=== PATIENT | male | born 1980 | race American Indian/Alaskan Native ===

== ENCOUNTER 2021-02-07 09:50 | Emergency (ER) | payer OTHER ==
[2021-02-07] MEDS ORDERED: ASPIRIN 325 MG TAB PO ONE (10:21)
--- NOTE | 2021-02-07 10:53 | XRay Report ---
CHEST 2 VIEWS INDICATION: chest pain. COMPARISON: FINDINGS: Support devices: None. Heart: Within normal limits. Lungs: No acute air space or interstitial disease. Pleura: No significant pleural effusion. No pneumothorax. Additional findings: None. IMPRESSION: 1. No acute findings. Signer Name: Yovanny Aleman MD Signed: 02/07/2021 10:48 AM Workstation Name: [id number]
[2021-02-07 11:02] LABS: Basophils % (Auto) 0.7 % (0.0-1.8); Eosinophils % (Auto) 0.7 % (0.0-4.3); Hematocrit 46.1 % (35.5-45.6); Hemoglobin 15.4 gm/dl (11.8-15.2); Lymphocytes # (Auto) 1.5 K/mm3 (1.2-5.4); Lymphocytes % (Auto) 42.6 % (13.4-35.0); Mean Corpuscular HGB Conc 33 % (32-34); Mean Corpuscular Volume 91 fl (84-94); Monocytes # (Auto) 0.3 K/mm3 (0.0-0.8); Monocytes % (Auto) 9.9 % (0.0-7.3); Red Blood Count 5.06 M/mm3 (3.65-5.03); Red Cell Distribution Width 14.5 % (13.2-15.2)
[2021-02-07 11:24] LABS: Platelet Count 234 K/mm3 (140-440)
[2021-02-07 11:34] LABS: Alanine Aminotransferase 20 units/L (7-56); Albumin 4.9 g/dL (3.9-5); BUN/Creatinine Ratio 10; Blood Urea Nitrogen 9 mg/dL (9-20); Calcium 9.7 mg/dL (8.4-10.2); Hemolysis Index 32
--- NOTE | 2021-02-07 11:49 | Event Note ---
ED Screening Note Date of service: 02/07/21 Time: 11:47 ED Screening Note: 40-year-old male patient with history of tobacco abuse in remission presents to the emergency department with complaints of left-sided chest pressure starting this morning, approximately 2 hours ago. Patient states he was preparing pizza in the kitchen when his symptoms began. No medications prior to arrival. Patient experienced a similar episode approximately 2 weeks ago, but did not seek medical attention at that time. Currently, patient describes a sensation as "trapped gas." General: Awake, appropriately interactive, no acute distress. Neck: Supple. Full range of motion intact. Cardiovascular: Normal peripheral perfusion. Pulmonary: No respiratory distress. Patient is speaking normally without use of accessory muscles. Skin: No apparent rashes or lesions. Neurological: No facial asymmetry. Speech is clear. Follows commands. Patient is alert and oriented. Musculoskeletal: Moves all four extremities spontaneously with normal range of motion. Psych: Cooperative. Appropriate mood and affect. I have greeted and performed a focused rapid initial assessment of this patient. A comprehensive ED assessment and evaluation of the patient, analysis of all test results, and completion of the medical decision-making process will be conducted by additional ED providers. This initial assessment/diagnostic orders/clinical plan/treatment(s) is/are subject to change based on patients health status, clinical progression and re-assessment. Further treatment and workup at subsequent clinical provider's discretion. Patient/guardian urged not to elope from the ED as their condition may be serious if not clinically assessed and managed.
--- NOTE | 2021-02-07 12:28 | Emergency Department Report ---
ED Chest Pain HPI - General Chief Complaint: Chest Pain Stated Complaint: CHEST PAIN Time Seen by Provider: 02/07/21 11:48 Source: patient Mode of arrival: Ambulatory Limitations: No Limitations - History of Present Illness Initial Comments: 40-year-old male presents to ED with chest pain since 9 AM. Patient reports pain is intermittent, pressure-like, left-sided, nonradiating. Onset at rest. He denies any associated shortness of breath, diaphoresis, nausea or vomiting, leg pain or swelling, cough or fever. Patient denies tobacco use. MD Complaint: chest pain -: This morning Onset: during rest Pain Location: left chest Pain Radiation: none Severity: mild Quality: pressure, other ("like gas") Consistency: intermittent Improves With: nothing Worsens With: nothing re: denies: nausea, vomting, diaphoresis, dyspnea Other Symptoms: denies: cough, fever, leg swelling - Related Data Allergies Allergy/AdvReac Type Severity Reaction Status Date / Time No Known Allergies Allergy Verified 02/07/21 13:02 Heart Score - HEART Score History: Slightly suspicious EKG: Normal Age: < 45 Risk factors: 1-2 risk factors Troponin: < normal limit HEART Score: 1 - EKG Read Time Time EKG Completed: 10:10 EKG Read Time: 10:23 ED Review of Systems ROS: Stated complaint: CHEST PAIN Other details as noted in HPI Comment: All other systems reviewed and negative Constitutional: denies: chills, fever Respiratory: denies: cough, shortness of breath Cardiovascular: chest pain Gastrointestinal: denies: nausea, vomiting Musculoskeletal: other (Denies leg pain or swelling) ED Past Medical Hx - Past Medical History Previous Medical History?: No - Surgical History Past Surgical History?: No - Social History Smoking Status: Never Smoker Substance Use Type: Alcohol ED Physical Exam - General Limitations: No Limitations General appearance: alert, in no apparent distress - Head Head exam: Present: atraumatic, normocephalic - Eye Eye exam: Present: normal appearance, EOMI - ENT ENT exam: Present: mucous membranes moist - Neck Neck exam: Present: normal inspection - Respiratory Respiratory exam: Present: normal lung sounds bilaterally. Absent: respiratory distress - Cardiovascular Cardiovascular Exam: Present: regular rate, normal rhythm - GI/Abdominal GI/Abdominal exam: Present: soft. Absent: distended, tenderness - Extremities Exam Extremities exam: Present: normal inspection - Neurological Exam Neurological exam: Present: alert, oriented X3 - Psychiatric Psychiatric exam: Present: normal affect, normal mood - Skin Skin exam: Present: warm, dry, intact, normal color ED Course Vital Signs 02/07/21 02/07/21 02/07/21 10:15 12:55 13:01 Temperature 98.4 F Pulse Rate 64 59 L 65 Respiratory 20 11 L 17 Rate Blood Pressure 145/99 125/79 O2 Sat by Pulse 99 98 Oximetry 02/07/21 02/07/21 02/07/21 13:15 13:21 13:31 Temperature Pulse Rate 55 L 88 61 Respiratory 19 15 Rate Blood Pressure 125/79 128/84 O2 Sat by Pulse 98 98 Oximetry 02/07/21 02/07/21 02/07/21 13:45 14:01 14:15 Temperature Pulse Rate 69 60 56 L Respiratory 18 18 19 Rate Blood Pressure 128/84 125/75 125/75 O2 Sat by Pulse 99 97 98 Oximetry 02/07/21 02/07/21 02/07/21 14:31 14:45 15:01 Temperature Pulse Rate 65 69 68 Respiratory 20 19 18 Rate Blood Pressure 126/74 126/74 120/79 O2 Sat by Pulse 97 97 95 Oximetry 02/07/21 02/07/21 02/07/21 15:15 15:31 15:45 Temperature Pulse Rate 55 L 77 69 Respiratory 17 18 23 Rate Blood Pressure 120/79 121/82 121/82 O2 Sat by Pulse 95 97 97 Oximetry 02/07/21 16:01 Temperature Pulse Rate 76 Respiratory 19 Rate Blood Pressure 115/71 O2 Sat by Pulse 96 Oximetry ED Medical Decision Making - Lab Data Result diagrams: 02/07/21 10:24 02/07/21 10:24 - EKG Data -: EKG Interpreted by Ny EKG shows normal: sinus rhythm, axis, intervals, QRS complexes, ST-T waves Rate: normal - EKG Data Interpretation: no acute changes - Radiology Data Radiology results: report reviewed, image reviewed - Medical Decision Making 40-year-old male presents to ED with chest pain. EKG is unremarkable. Troponin is negative x2. Chest x-ray is unremarkable. Vital signs are stable. Patient is feeling much better at this time. He will be discharged home. Patient information will be faxed to [facility] for urgent cardiology follow-up. - Differential Diagnosis ACS, GERD, pancreatitis Critical care attestation.: If time is entered above; I have spent that time in minutes in the direct care of this critically ill patient, excluding procedure time. ED Disposition Clinical Impression: Chest pain Disposition: TO HOME OR SELFCARE Is pt being admited?: No Condition: Stable Instructions: Nonspecific Chest Pain, Adult Referrals: UNKNOWN, [Other] - 3-5 Days PRIMARY CARE, [Referring] - 3-5 Days KATELYNN AZUL MD [Staff Physician] - 3-5 Days Time of Disposition: 15:09
[2021-02-07] MEDS ORDERED: ASPIRIN 325 MG TAB ONE (12:48)
[2021-02-07 17:26] VITALS: BP 115/71
--- NOTE | 2021-02-11 09:40 | Electrocardiograph Report ---
[facility] Test Date: 2021-02-07 Test Time: 10:10:46 Pat Name: ANDREW SANCHEZ Department: Room: Gender: M Emt I/99: Александр TEJADA RN : 1980 Requested By: KHURRAM BRIONES Order Number: [id number] Reading MD: Shahid Cedillo Measurements Intervals [place] Rate: 88 P: 55 NM: 194 QRS: 61 QRSD: 90 T: 22 QT: 345 QTc: 418 Interpretive Statements Sinus rhythm Probable left atrial enlargement ST elev, probable normal early repol pattern No previous ECG available for comparison Electronically Signed On 02-11-2021 9:40:30 EDT by Shahid Cedillo
== END 2021-02-07 16:00 | disposition home or self-care (01) ==
LOC: ED 09:50
DX: R07.89 Other chest pain (principal); Z72.89 Other problems related to lifestyle
CPT/HCPCS: 36415; 71046; 80053; 83690; 84484; 85025; 93005; 99284

== ENCOUNTER 2021-02-13 22:53 | Emergency (ER) | payer OTHER ==
[2021-02-13] MEDS ORDERED: ASPIRIN 325 MG TAB PO ONE (23:47)
[2021-02-13] MEDS ORDERED: ALUM-MAG HYDROXIDE-SIMETHICONE 200-200-20MG/5ML ORAL LIQD 30 ML PO ONE (23:47)
[2021-02-13] MEDS ORDERED: LIDOCAINE VISCOUS 2% 15 ML ORAL LIQD PO ONE (23:47)
--- NOTE | 2021-02-13 23:50 | Event Note ---
ED Screening Note Date of service: 02/13/21 Time: 23:49 ED Screening Note: Patient is a 40-year-old -[place] male with past medical history of GERD who presents to the ED acute onset persistent intermittent left-sided chest pain for the last 1 week, worse in the last 12 hours. Patient states that he initially felt that he was unable to burp because of pressure in his chest. Patient states that he has been taking Gas-X medication with no relief. Patient denies dizziness, syncope, shortness of breath, nausea, vomiting, neck pain, headache, numbness and tingling or weakness of upper extremities bilaterally, cough, palpitations or abdominal pain. This initial assessment/diagnostic orders/clinical plan/treatment(s) is/are subject to change based on patients health status, clinical progression and re- assessment by fellow clinical providers in the ED. Further treatment and workup at subsequent clinical providers discretion. Patient/guardian urged not to elope from the ED as their condition may be serious if not clinically assessed and managed. Initial orders include: CBC, CMP, troponin, EKG, chest x-ray
--- NOTE | 2021-02-14 00:16 | XRay Report ---
CHEST 1 VIEW INDICATION / CLINICAL INFORMATION: chest pain. FINDINGS: SUPPORT DEVICES: None. HEART / MEDIASTINUM: No significant abnormality. LUNGS / PLEURA: No significant pulmonary or pleural abnormality. No pneumothorax. ADDITIONAL FINDINGS: No significant additional findings. IMPRESSION: 1. No acute findings. Signer Name: Carmelo Coronado MD Signed: 02/14/2021 12:12 AM Workstation Name: [id number]
[2021-02-14 00:19] LABS: Basophils % (Auto) 0.5 % (0.0-1.8); Eosinophils % (Auto) 0.5 % (0.0-4.3); Hematocrit 44.4 % (35.5-45.6); Hemoglobin 15.1 gm/dl (11.8-15.2); Lymphocytes # (Auto) 1.6 K/mm3 (1.2-5.4); Lymphocytes % (Auto) 38.1 % (13.4-35.0); Mean Corpuscular HGB Conc 34 % (32-34); Mean Corpuscular Volume 90 fl (84-94); Monocytes # (Auto) 0.5 K/mm3 (0.0-0.8); Monocytes % (Auto) 12.1 % (0.0-7.3); Platelet Count 199 K/mm3 (140-440); Red Blood Count 4.94 M/mm3 (3.65-5.03); Red Cell Distribution Width 14.3 % (13.2-15.2)
[2021-02-14 00:45] LABS: Alanine Aminotransferase 32 units/L (7-56); Albumin 4.7 g/dL (3.9-5); BUN/Creatinine Ratio 12; Blood Urea Nitrogen 12 mg/dL (9-20); Calcium 9.3 mg/dL (8.4-10.2); Hemolysis Index 13
--- NOTE | 2021-02-14 02:24 | Emergency Department Report ---
ED Chest Pain HPI - General Chief Complaint: Chest Pain Stated Complaint: LT SIDE CHEST DISCOMFORT Source: patient Mode of arrival: Ambulatory Limitations: No Limitations - History of Present Illness Initial Comments: Patient is a 40-year-old -[place] male with past medical history of GERD and who does not take any medications presents to the ED acute onset persistent intermittent left-sided chest pain for the last 1 week, worse in the last 12 hours. Patient states that he initially felt that he was unable to burp because of pressure in his chest. Patient states that he has been taking Gas-X medication with no relief. Patient denies dizziness, syncope, shortness of breath, nausea, vomiting, neck pain, headache, numbness and tingling or weakness of upper extremities bilaterally, cough, palpitations or abdominal pain. MD Complaint: chest pain -: Sudden, week(s) (2) Onset: awoke with symptoms Pain Location: substernal, left chest Pain Radiation: none Severity: mild Severity scale (0 -10): 4 Quality: aching Consistency: intermittent Improves With: nothing Worsens With: nothing re: nausea. denies: vomting, diaphoresis, dyspnea, sense of impending doom Other Symptoms: acid taste in mouth. denies: cough, fever, syncope, rash, leg swelling, palpitations, burping, other Treatments Prior to Arrival: none Aspirin use within the Past 7 Days: (0) No - Related Data On Oral Contraceptives: No Previous Rx's Medication Instructions Recorded Last Taken Type Famotidine [Pepcid] 20 mg PO BID #60 tablet 02/14/21 Unknown Rx Naproxen 500 mg PO Q12H PRN #20 tablet 02/14/21 Unknown Rx Ondansetron [Zofran Odt] 4 mg PO Q8HR PRN #15 tab.rapdis 02/14/21 Unknown Rx hydrOXYzine PAMOATE [Vistaril] 50 mg PO QHS PRN #30 capsule 02/14/21 Unknown Rx Allergies Allergy/AdvReac Type Severity Reaction Status Date / Time No Known Allergies Allergy Verified 02/07/21 13:02 Heart Score - HEART Score History: Slightly suspicious EKG: Normal Age: < 45 Risk factors: No known risk factors Troponin: < normal limit HEART Score: 0 - EKG Read Time Time EKG Completed: 23:10 EKG Read Time: 23:15 - Critical Actions Critical Actions: 0-3 pts:0.9-1.7%risk of adverse cardiac event.Candidate for ailin steinberg ED Review of Systems ROS: Stated complaint: LT SIDE CHEST DISCOMFORT Other details as noted in HPI Constitutional: denies: chills, fever Eyes: denies: eye pain, eye discharge, vision change ENT: denies: ear pain, throat pain Respiratory: denies: cough, shortness of breath, wheezing Cardiovascular: chest pain (Left-sided chest discomfort). denies: palpitations Endocrine: no symptoms reported Gastrointestinal: abdominal pain (Epigastric discomfort). denies: nausea, vomiting, diarrhea Genitourinary: denies: urgency, dysuria Musculoskeletal: denies: back pain, joint swelling, arthralgia Skin: denies: rash, lesions Neurological: denies: headache, weakness, paresthesias Psychiatric: anxiety. denies: depression Hematological/Lymphatic: denies: easy bleeding, easy bruising ED Past Medical Hx - Past Medical History Previous Medical History?: No - Surgical History Past Surgical History?: No - Social History Smoking Status: Current Every Day Smoker Substance Use Type: None - Medications Home Medications: Home Medications Medication Instructions Recorded Confirmed Last Taken Type Famotidine [Pepcid] 20 mg PO BID #60 tablet 02/14/21 Unknown Rx Naproxen 500 mg PO Q12H PRN #20 tablet 02/14/21 Unknown Rx Ondansetron [Zofran Odt] 4 mg PO Q8HR PRN #15 tab.rapdis 02/14/21 Unknown Rx hydrOXYzine PAMOATE [Vistaril] 50 mg PO QHS PRN #30 capsule 02/14/21 Unknown Rx ED Physical Exam - General Limitations: No Limitations General appearance: alert, in no apparent distress - Head Head exam: Present: atraumatic, normocephalic, normal inspection - Eye Eye exam: Present: normal appearance, PERRL, EOMI Pupils: Present: normal accommodation - ENT ENT exam: Present: normal exam, normal orophraynx, mucous membranes moist, TM's normal bilaterally, normal external ear exam - Neck Neck exam: Present: normal inspection, full ROM. Absent: tenderness, lymphadenopathy - Respiratory Respiratory exam: Present: normal lung sounds bilaterally. Absent: respiratory distress, wheezes, rales, rhonchi, chest wall tenderness, accessory muscle use, decreased breath sounds, prolonged expiratory - Cardiovascular Cardiovascular Exam: Present: regular rate, normal rhythm, normal heart sounds. Absent: systolic murmur, diastolic murmur, rubs, gallop - GI/Abdominal GI/Abdominal exam: Present: soft, normal bowel sounds. Absent: distended, tenderness, guarding, hyperactive bowel sounds, hypoactive bowel sounds, org anomegaly - Extremities Exam Extremities exam: Present: normal inspection, full ROM, normal capillary refill - Back Exam Back exam: Present: normal inspection, full ROM. Absent: tenderness, CVA tenderness (R), CVA tenderness (L), muscle spasm, paraspinal tenderness, vertebral tenderness - Neurological Exam Neurological exam: Present: alert, oriented X3, CN II-XII intact, normal gait, reflexes normal - Psychiatric Psychiatric exam: Present: normal affect, normal mood - Skin Skin exam: Present: warm, dry, intact, normal color. Absent: rash ED Course Vital Signs 02/13/21 22:59 Temperature 98.8 F Pulse Rate 73 Respiratory 18 Rate Blood Pressure 146/90 O2 Sat by Pulse 98 Oximetry LEXX score - Lexx Score Age > 65: (0) No Aspirin use within the Past 7 Days: (0) No 3 or more CAD Risk Factors: (0) No 2 or more Angina events in past 24 hrs: (0) No Known CAD with more than 50% Stenosis: (0) No Elevated Cardiac Markers: (0) No ST Deviation Greater than 0.5mm: (0) No LEXX Score: 0 ED Medical Decision Making - Lab Data Result diagrams: 02/14/21 00:06 02/14/21 00:06 - EKG Data EKG shows normal: sinus rhythm Rate: normal - EKG Data Interpretation: normal EKG - Radiology Data Radiology results: report reviewed, image reviewed [facility] [address] [place] [address] XRay Report Signed Patient: ANDREW SANCHEZ MR#: [id number] 39 : 1980 Acct:[id number] Age/Sex: 40 / M ADM Date: 02/13/21 Loc: ED Attending Dr: Ordering Physician: MATT CHANDLER Date of Service: 02/13/21 Procedure(s): XR chest 1V ap Accession Number(s): [id number] cc: TIFFANY OSEDO, PA Fluoro Time In Minutes: CHEST 1 VIEW INDICATION / CLINICAL INFORMATION: chest pain. FINDINGS: SUPPORT DEVICES: None. HEART / MEDIASTINUM: No significant abnormality. LUNGS / PLEURA: No significant pulmonary or pleural abnormality. No pneumothorax. ADDITIONAL FINDINGS: No significant additional findings. IMPRESSION: 1. No acute findings. Signer Name: Carmelo Coronado MD Signed: 02/14/2021 12:12 AM Workstation Name: [id number] Transcribed By: BC Dictated By: Carmelo Coronado MD Electronically Authenticated By: Carmelo Coronado MD Signed Date/Time: 02/14/2111 DD/ TD/TT: - Medical Decision Making This is a 40-year-old -[place] male with past medical history of GERD and who does not take any medications presents to the ED acute onset persistent intermittent left-sided chest pain for the last 1 week, worse in the last 12 hours. Patient states that he initially felt that he was unable to burp because of pressure in his chest. Patient states that he has been taking Gas-X medication with no relief. In the ED, patient is alert oriented x3 and is not in any distress. EKG shows normal sinus rhythm with no ST or T wave abnormalities. Chest x-ray shows no acute cardiopulmonary abnormalities or pneumonitis. Lab test results were reviewed and are all nonactionable. Patient was treated in the ED for pain with aspirin and also given antacids. Patient has no cardiac risk factors and his heart score is 0. Patient is also PERC negative per Wells criteria. Patient's symptoms are likely due to GERD or chest wall muscle strain, or anxiety and unlikely due to ACS given the fact the patient heart score is 0 and he has no cardiac risk factors. Patient was therefore discharged home and advised to follow-up with his primary care physician in 5 to 7 days for reevaluation. Patient is advised return to the ED immediately if symptoms get worse. - Differential Diagnosis ACS; anxiety; pneumonia; muscle strain; GERD; Critical care attestation.: If time is entered above; I have spent that time in minutes in the direct care of this critically ill patient, excluding procedure time. ED Disposition Clinical Impression: Acute nonspecific chest pain with low risk of coronary artery disease, Anxiety as acute reaction to exceptional stress GERD (gastroesophageal reflux disease) Qualifiers: Esophagitis presence: esophagitis presence not specified Qualified Code(s): K21.9 - Gastro-esophageal reflux disease without esophagitis Disposition: TO HOME OR SELFCARE Is pt being admited?: No Does the pt Need Aspirin: No Condition: Stable Instructions: Generalized Anxiety Disorder, Adult, Heartburn, Hthn-[id number], Ch est Wall Pain, Fqbn-[id number]-Hwnc, Nonspecific Chest Pain, Adult, Zlaq-tm-Eody, Gastroesophageal Reflux Disease, Adult, Subn-br-Hocl, Chest Pain (ED) Additional Instructions: All lab test results were reviewed and are all nonactionable. Therefore take medication with food, drink plenty of fluids and follow-up with your primary care physician in 5 to 7 days for reevaluation. Return to the ED immediately if symptoms get worse. Prescriptions: hydrOXYzine PAMOATE [Vistaril] 50 mg PO QHS PRN #30 capsule PRN Reason: Anxiety Naproxen 500 mg PO Q12H PRN #20 tablet PRN Reason: Pain , Severe (7-10) Famotidine [Pepcid] 20 mg PO BID #60 tablet Ondansetron [Zofran Odt] 4 mg PO Q8HR PRN #15 tab.rapdis PRN Reason: Nausea Referrals: [facility] [Provider Group] - 3-5 Days Time of Disposition: 02:22 Print Language: KAZAKH
[2021-02-14 05:03] VITALS: BP 146/90
--- NOTE | 2021-02-14 13:20 | Electrocardiograph Report ---
[facility] Test Date: 2021-02-13 Test Time: 23:08:51 Pat Name: ANDREW SANCHEZ Department: Room: Gender: M Nursing Manager: HEIDI : 1980 Requested By: TIFFANY ESQUIVEL Order Number: [id number] Reading MD: Chepe Bolton Measurements Intervals [place] Rate: 81 P: 145 TN: 201 QRS: 141 QRSD: 91 T: 7 QT: 340 QTc: 396 Interpretive Statements Sinus or ectopic atrial rhythm Left atrial enlargement Right axis deviation Compared to ECG 02/07/2021 10:10:46 Ectopic atrial rhythm now present Right-axis deviation now present Sinus rhythm no longer present ST (T wave) deviation no longer present Electronically Signed On 02-14-2021 13:20:11 EDT by Chepe Bolton
== END 2021-02-14 02:45 | disposition home or self-care (01) ==
LOC: ED 22:53
DX: K21.9 Gastro-esophageal reflux disease without esophagitis (principal); F41.9 Anxiety disorder, unspecified; F17.200 Nicotine dependence, unspecified, uncomplicated; Z79.899 Other long term (current) drug therapy
CPT/HCPCS: 36415; 71045; 80053; 84484; 85025; 93005; 99284